=== PATIENT | female | born 1990 | race Caucasian/White ===

== ENCOUNTER 2017-04-23 10:47 | Emergency (ER) | payer OTHER ==
[~2017-04-23] VITALS: Ht 180.3 cm; Wt 83.9 kg
[2017-04-23 11:55] VITALS: BP 103/69
== END 2017-04-23 11:55 | disposition home or self-care (01) ==
LOC: ED 10:47
DX: B34.9 Viral infection, unspecified (principal)
CPT/HCPCS: J1885; J7613; J7644; Q0162

== ENCOUNTER 2017-10-21 11:01 | Emergency (ER) | payer OTHER ==
[~2017-10-21] VITALS: Ht 180.3 cm; Wt 82.7 kg
[2017-10-21 11:04] VITALS: BP 109/75
== END 2017-10-21 12:18 | disposition home or self-care (01) ==
LOC: ED 11:01
DX: B34.9 Viral infection, unspecified (principal)
CPT/HCPCS: J7613; J7644

== ENCOUNTER 2017-10-22 16:47 | Emergency (ER) | payer OTHER ==
[~2017-10-22] VITALS: Ht 182.9 cm; Wt 85.5 kg
[2017-10-22 18:00] LABS: BASOPHIL % 0.6 % (0-2); PLATELET COUNT 199 x10^3mcL (130-400); RED CELL DISTRIBUTION WIDTH 12.9 % (11.5-14.5)
[2017-10-22 18:01] LABS: CALCIUM 8.7 mg/dL (8.5-10.1); CARBON DIOXIDE 25.5 mmol/L (21-32); CHLORIDE SERUM 99 mmol/L (98-107); CREATININE SERUM 0.7 mg/dL (0.6-1.0); GFR1 > 60 mL/min; GLUCOSE SERUM 96 mg/dL (74-106); POTASSIUM SERUM 3.8 mmol/L (3.5-5.1); SODIUM SERUM 132 mmol/L (136-145)
[2017-10-22 18:05] LABS: microscopic required? YES; urine erythrocyte 1+ (NEGATIVE)
[2017-10-22 19:49] VITALS: BP 101/62
== END 2017-10-22 19:49 | disposition home or self-care (01) ==
LOC: ED 16:47
PROVIDERS: Emergency Medicine
DX: J06.9 Acute upper respiratory infection, unspecified (principal)
CPT/HCPCS: J0696; J3490; J7030; J7613; J7644

== ENCOUNTER 2018-11-03 06:54 | Emergency (ER) | payer OTHER ==
[~2018-11-03] VITALS: Ht 180.3 cm; Wt 82.6 kg
[2018-11-03 06:58] VITALS: Ht 180.3 cm; Wt 82.6 kg
[2018-11-03 08:11] LABS: UA SPECIFIC GRAVITY >=1.030 (1.005-1.035); microscopic required? YES; urine erythrocyte TRACE (NEGATIVE)
[2018-11-03 09:36] VITALS: BP 115/79
== END 2018-11-03 09:36 | disposition home or self-care (01) ==
LOC: ED 06:54
PROVIDERS: Emergency Medicine
DX: M54.5 Low back pain (principal); G89.29 Other chronic pain; N39.0 Urinary tract infection, site not specified; N76.0 Acute vaginitis
CPT/HCPCS: J1100; J1885